=== PATIENT | female | born 1930 ===

== ENCOUNTER 2017-06-11 10:35 | Observation (INO) | payer MEDICARE, OTHER ==
[2017-06-11 10:38] VITALS: BMI 21.9
[2017-06-11] MEDS ORDERED: Sodium Chloride 0.9% 1,000 ML IV STA (11:18)
--- NOTE | 2017-06-11 11:24 | ED PDOC ---
HPI: Altered Mental Status Time Seen by Provider: 06/11/17 10:45 Chief Complaint (Provider): Altered Mental Status History Per: Patient Additional Complaint(s): Kim Corral is a 87 year old female presenting to the ED accompanied by her son and her cousin's [id number] for an evaluation of an altered mental status episode occurring at 9:15 AM prior to arrival. The patient is visiting [place] from [place] due to her cousins hospitalization. The patients cousins [id number] states the patient was fine this morning, then at breakfast she was incoherent, repeating the same question over again, fell to the ground, then was unable to ambulate on her own. The patient's cousin's [id number] took the patient home then called the ambulance to take the patient to the ED. The patient took daytime Nyquil this morning for a cough and cold. She denies fever, double vision, nausea, chest pain, or any recent similar symptoms in the past. The patient's speech and vision are normal upon arrival to the ED. PMD: None Provided NIHSS Stroke Scale - Date/Time Evaluation Performed When Was NIHSS Performed: Baseline - How Severe is the Stroke Level of Consciousness: 0=Alert LOC to Questions: 0=Both comments correct LOC to commands: 0=Obeys both correctly Best Gaze: 0=Normal Visual: 0=No visual loss Facial: 0=Normal Motor Arm - Left: 0=No drift Motor Arm - Right: 0=No drift Motor Leg - Left: 0=No drift Motor Leg - Right: 0=No drift Limb Ataxia: 0=Absent Sensory: 0=Normal Best Language: 0=No aphasia Dysarthia: 0=Normal articulation Extinction & Inattention (Neglect): 0=Normal, no object Score: 0 Past Medical History Vital Signs: Last Vital Signs Temp 97.3 F L 06/11/17 10:36 Pulse 76 06/11/17 10:36 Resp 18 06/11/17 10:36 BP 122/62 06/11/17 10:36 Pulse Ox 99 06/11/17 10:36 - Medical History PMH: HTN - Family History Family History: States: Unknown Family Hx - Social History Current smoker - smoking cessation education provided: No - Allergies Allergies/Adverse Reactions: Allergies Allergy/AdvReac Type Severity Reaction Status Date / Time No Known Allergies Allergy Verified 06/11/17 11:16 Review of Systems ROS Statement: Except As Marked, All Systems Reviewed And Found Negative Constitutional: Negative for: Fever Eyes: Negative for: Vision Change Cardiovascular: Negative for: Chest Pain Gastrointestinal: Negative for: Nausea Neurological: Positive for: Incoordination, Confusion, Altered Mental Status Physical Exam - Reviewed Nursing Documentation Reviewed: Yes Vital Signs Reviewed: Yes - Physical Exam Appears: Positive for: Well, Non-toxic, No Acute Distress Head Exam: Positive for: ATRAUMATIC, NORMAL INSPECTION, NORMOCEPHALIC Skin: Positive for: Normal Color, Warm, DRY Eye Exam: Positive for: EOMI, Normal appearance, PERRL ENT: Positive for: Normal ENT Inspection Neck: Positive for: Normal, Painless ROM Cardiovascular/Chest: Positive for: Chest Non Tender, Murmur (Holosystolic murmur in apex radiating to aortic area rating 3/6) Respiratory: Positive for: Normal Breath Sounds. Negative for: Respiratory Distress Gastrointestinal/Abdominal: Positive for: Normal Exam, Bowel Sounds, Soft Back: Positive for: Normal Inspection Extremity: Positive for: Normal ROM Neurologic/Psych: Positive for: Alert, Oriented - Laboratory Results Result Diagrams: 06/11/17 11:45 06/11/17 11:45 - ECG O2 Sat by Pulse Oximetry: 99 (RA) Pulse Ox Interpretation: Normal Medical Decision Making Medical Decision Makin:45 Impression: Altered mental status Plan: * ED EKG * Alcohol Serum * Comp metabolic panel * Drug screen, urine * Troponin I * CBC (With Differential) * NS 0.9% 250 mls/hr IV * CT Head W/O Contrast * Chest Two Views (PA/LAT) [RAD] * Glucose, Blood, POC * Reevaluation Chest X-ray FINDINGS: LINES AND TUBES: None. LUNG AND PLEURA: There is mild pulmonary venous congestion. No focal consolidation. HEART AND MEDIASTINUM: The heart is not enlarged. Atherosclerotic aortic arch calcifications are present. The hilar and mediastinal contours are within normal limits. SKELETAL STRUCTURES: There is an S-shaped scoliosis in the thoracolumbar spine. VISUALIZED UPPER ABDOMEN: Normal. OTHER FINDINGS: Surgical clips in the right upper quadrant are related to prior cholecystectomy.. IMPRESSION: No active pulmonary disease. Head CT FINDINGS: HEMORRHAGE: No intracranial hemorrhage. BRAIN: There are mild chronic microangiopathic changes. There is no mass, mass effect or abnormal extra-axial fluid collection. VENTRICLES: There is mild age-related global parenchymal volume loss and proportionate enlargement of the ventricles and cortical sulci. CALVARIUM: The skull base and calvarium are normal. PARANASAL SINUSES: Predominantly clear. MASTOID AIR CELLS: Predominantly clear. OTHER FINDINGS: None. IMPRESSION: No acute intracranial abnormality. Mild chronic microangiopathic changes and mild age-related global parenchymal volume loss. Scribe Attestation: Documented by Anisha Smith, acting as a scribe for Paulina Prajapati MD. Provider Scribe Attestation: All medical record entries made by the Scribe were at my direction and personally dictated by me. I have reviewed the chart and agree that the record accurately reflects my personal performance of the history, physical exam, medical decision making, and the department course for this patient. I have also personally directed, reviewed, and agree with the discharge instructions and disposition. case d/w Dr. Stafford for observation admission. Neuro consult. Disposition - Clinical Impression Clinical Impression: Altered mental status - Patient ED Disposition Is Patient to be Admitted: Yes Doctor Will See Patient In The: Hospital - Disposition Disposition: Transfer of Care Disposition Time: 13:40 Condition: GUARDED - Pt Status Changed To: Hospital Disposition Of: Observation - POA Present On Arrival: None
--- NOTE | 2017-06-11 11:47 | RAD ---
HISTORY: COMPARISON: No prior. TECHNIQUE: Chest PA and lateral FINDINGS: LINES AND TUBES: None. LUNG AND PLEURA: There is mild pulmonary venous congestion. No focal consolidation. HEART AND MEDIASTINUM: The heart is not enlarged. Atherosclerotic aortic arch calcifications are present. The hilar and mediastinal contours are within normal limits. SKELETAL STRUCTURES: There is an S-shaped scoliosis in the thoracolumbar spine. VISUALIZED UPPER ABDOMEN: Normal. OTHER FINDINGS: Surgical clips in the right upper quadrant are related to prior cholecystectomy.. IMPRESSION: No active pulmonary disease.
[2017-06-11 11:53] LABS: BASO # 0.1 K/uL (0.0-0.2); BASO % 1.1 % (0.0-2.0); EOS # 0.2 K/uL (0.0-0.7); EOS % 2.2 % (0.0-4.0); HEMATOCRIT 39.6 % (34.0-47.0); LYMPH # 1.7 K/uL (1.0-4.3); LYMPH % 24.1 % (20.0-40.0); MEAN CELL VOLUME 91.7 fl (81.0-99.0); MEAN CORPUSCULAR HEMOGLOBIN 30.4 pg (27.0-31.0); MEAN CORPUSCULAR HGB CONC 33.2 g/dL (33.0-37.0); MEAN PLATELET VOLUME 9.7 fl (7.2-11.7); MONO # 0.6 K/uL (0.0-0.8); MONO % 7.7 % (0.0-10.0); NEUT # 4.7 K/uL (1.8-7.0); NRBC % 0.2 % (0.0-0.0); PLATELET COUNT 192 K/uL (130-400); RED CELL DISTRIBUTION WIDTH 14.3 % (11.5-14.5); WHITE BLOOD COUNT 7.2 K/uL (4.8-10.8)
[2017-06-11 12:12] LABS: NEUT % 64.9 % (50.0-75.0)
[2017-06-11 12:14] LABS: ALB/GLOB RATIO 1.5 (1.0-2.1); ALCOHOL SERUM < 10 mg/dl (0-10); ALKALINE PHOSPHATASE 94 U/L (38-126); ALT/SGPT 33 U/L (9-52); AST/SGOT 32 U/L (14-36); BILIRUBIN,TOTAL 0.4 mg/dl (0.2-1.3); BLOOD UREA NITROGEN 20 mg/dl (7-17); CALCIUM 9.8 mg/dL (8.4-10.2); CARBON DIOXIDE 24 mmol/L (22-30); CHLORIDE 107 mmol/L (98-107); GFR AFRICAN-AMERICAN > 60; GLUCOSE,RANDOM 146 mg/dL (65-105); SODIUM 141 mmol/l (132-148); TOTAL PROTEIN 7.4 G/DL (6.3-8.2)
--- NOTE | 2017-06-11 12:18 | CT ---
PROCEDURE: CT HEAD WITHOUT CONTRAST. HISTORY: Altered mental status COMPARISON: None available. TECHNIQUE: Axial computed tomography images were obtained through the head/brain without intravenous contrast. Radiation dose: Total exam DLP = 789.31 mGy-cm. This CT exam was performed using one or more of the following dose reduction techniques: Automated exposure control, adjustment of the mA and/or kV according to patient size, and/or use of iterative reconstruction technique. FINDINGS: HEMORRHAGE: No intracranial hemorrhage. BRAIN: There are mild chronic microangiopathic changes. There is no mass, mass effect or abnormal extra-axial fluid collection. VENTRICLES: There is mild age-related global parenchymal volume loss and proportionate enlargement of the ventricles and cortical sulci. CALVARIUM: The skull base and calvarium are normal. PARANASAL SINUSES: Predominantly clear. MASTOID AIR CELLS: Predominantly clear. OTHER FINDINGS: None. IMPRESSION: No acute intracranial abnormality. Mild chronic microangiopathic changes and mild age-related global parenchymal volume loss.
[2017-06-11 12:25] LABS: POTASSIUM 4.5 MMOL/L (3.6-5.0)
[2017-06-11] MEDS ORDERED: Sodium Chloride 0.9% 500 ML IV STA (13:07)
[2017-06-11 13:11] LABS: BASOPHIL 1 % (0-2); EOSINOPHIL 3 % (0-7); NEUTROPHIL 62 % (42-75); TOTAL CELLS COUNTED 100
--- NOTE | 2017-06-11 15:07 | CARD ---
APPROVED REPORT EKG Measurement Heart [id number] DC [id number] [id number] <Conclusion> Normal sinus rhythm Nonspecific T wave abnormality Abnormal ECG
--- NOTE | 2017-06-11 16:45 | CP.PCM.CON ---
History of Present Illness - History of Present Illness History of Present Illness: Mrs. Israel Corral is an 87-year-old woman with a past medical history of hypertension, dyslipidemia, hypothyroidism, previous ID, multiple prior UTIs, who was noted to be confused and repeating herself this morning. She was attempting to eat and was apparently dropping food out of her mouth. She was brought to the ED and had no focal weakness or sensory changes, but was asking repetitive questions. Currently, the patient is asking to go home and does not have any complaints. However, her family states that she still seems confused to them. Review of Systems - Review of Systems All systems: reviewed and no additional remarkable complaints except Past Patient History - Past Social History Smoking Status: Never Smoked - CARDIAC Hx Hypertension: Yes - PSYCHIATRIC Hx Substance Use: No - SURGICAL HISTORY Hx Surgeries: No - ANESTHESIA Hx Anesthesia: No Meds Allergies/Adverse Reactions: Allergies Allergy/AdvReac Type Severity Reaction Status Date / Time No Known Allergies Allergy Verified 06/11/17 11:16 Physical Exam - Constitutional Appears: Well - Head Exam Head Exam: ATRAUMATIC, NORMAL INSPECTION, NORMOCEPHALIC - Eye Exam Eye Exam: EOMI, Normal appearance, PERRL - ENT Exam ENT Exam: Mucous Membranes Moist, Normal Exam - Neck Exam Neck exam: Positive for: Normal Inspection - Respiratory Exam Respiratory Exam: Clear to Auscultation Bilateral, NORMAL BREATHING PATTERN - Cardiovascular Exam Cardiovascular Exam: REGULAR RHYTHM, +S1, +S2 - GI/Abdominal Exam GI & Abdominal Exam: Normal Bowel Sounds, Soft. absent: Tenderness - Rectal Exam Rectal Exam: Deferred - Extremities Exam Extremities exam: Positive for: normal inspection - Back Exam Back exam: NORMAL INSPECTION - Neurological Exam Neurological exam: Abnormal Gait, Alert, CN II-XII Intact, Oriented x3, Reflexes Normal - Expanded Neurological Exam Expanded Patient oriented to: person, place, time Cranial nerves: EOM's Intact: Normal, Facial Sensation: Normal Ataxia: No Cerebellar Function: Finger to Nose: Normal Upper motor neuron: Babinski Sign: Normal Sensory exam: Lower Extremity Light Touch: Normal, Lower Extremity Pin Prick: Normal, Upper Extremity Light Touch: Normal, Upper Extremity Pin Prick: Normal Neuro motor strength exam: Left Upper Extremity: 4, Right Upper Extremity: 4, Left Lower Extremity: 4, Right Lower Extremity: 4 DTR: Achilles Tendon Left: 2+, Achilles Tendon Right: 2+, Bicep Left: 2+, Bicep Right: 2+, Brachioradialis Left: 2+, Brachioradialis Right: 2+, Patellar Left: 2 +, Patellar Right: 2+, Tricep Left: 2+, Tricep Right: 2+ - Psychiatric Exam Psychiatric exam: Normal Mood - Skin Skin Exam: Intact, Normal Color, Warm Results - Vital Signs Recent Vital Signs: Last Vital Signs Temp 97.3 F L 06/11/17 10:36 Pulse 76 06/11/17 10:36 Resp 18 06/11/17 10:36 BP 122/62 06/11/17 10:36 Pulse Ox 99 06/11/17 14:08 - Labs Result Diagrams: 06/11/17 11:45 06/11/17 11:45 - Imaging and Cardiology CT scan - head Status: Image reviewed by me, Report reviewed by me (Subcortical white matter disease and age appropriate atrophy without significant acute findings. ) Assessment & Plan (1) Encephalopathy Assessment and Plan: Most likely toxic-metabolic encephalopathy due to underlying infection, dehydration or other metabolic disorder. We may rule out acute infarct or other intracranial lesion with MRI of the brain. Furthermore, I recommend: 1. Urinalysis with culture 2. Hydration with NS at 100 mL/hr 3. Check B12, folate, TSH, T3/T4 4. PT/OT eval and treat 5. Continue aspirin, antihypertensives and statin 6. DVT Px Thank you. Status: Acute Priority: High
[2017-06-11 16:50] LABS: RBC URINE 2 /hpf (0-3); URINE BACTERIA RARE (<OCC); URINE BILIRUBIN NEGATIVE (NEGATIVE); URINE BLOOD NEGATIVE (NEGATIVE); URINE COLOR STRAW (YELLOW); URINE GLUCOSE (UA) NEG (Normal); URINE KETONE NEGATIVE (NEGATIVE); URINE LEUKOCYTE ESTERASE NEG Leu/uL (Negative); URINE PROTEIN NEGATIVE (NEGATIVE); URINE UROBILINOGEN 0.2-1.0 mg/dL (0.2-1.0); WBC URINE 4 /hpf (0-5)
[2017-06-12 06:35] LABS: HEMATOCRIT 35.6 % (34.0-47.0); MEAN CELL VOLUME 89.2 fl (81.0-99.0); MEAN CORPUSCULAR HEMOGLOBIN 30.5 pg (27.0-31.0); MEAN CORPUSCULAR HGB CONC 34.2 g/dL (33.0-37.0); RED CELL DISTRIBUTION WIDTH 14.1 % (11.5-14.5); WHITE BLOOD COUNT 4.5 K/uL (4.8-10.8)
[2017-06-12 06:46] LABS: ALB/GLOB RATIO 1.4 (1.0-2.1); ALKALINE PHOSPHATASE 75 U/L (38-126); ALT/SGPT 28 U/L (9-52); AST/SGOT 25 U/L (14-36); BILIRUBIN,TOTAL 0.3 mg/dl (0.2-1.3); BLOOD UREA NITROGEN 19 mg/dl (7-17); CALCIUM 8.9 mg/dL (8.4-10.2); CARBON DIOXIDE 24 mmol/L (22-30); CHLORIDE 108 mmol/L (98-107); CHOLESTEROL 154 mg/dL (0-199); GFR AFRICAN-AMERICAN > 60; GLUCOSE,RANDOM 132 mg/dL (65-105); POTASSIUM 4.1 MMOL/L (3.6-5.0); SODIUM 140 mmol/l (132-148); TOTAL PROTEIN 6.3 G/DL (6.3-8.2)
[2017-06-12 06:58] LABS: T4 5.63 ug/dl (5.5-11.0)
--- NOTE | 2017-06-12 10:32 | MRI ---
PROCEDURE: MRI BRAIN WITHOUT CONTRAST HISTORY: confusion and speech difficulty COMPARISON: None. TECHNIQUE: Multiplanar, multisequence MR images of the brain were obtained without intravenous contrast enhancement. FINDINGS: HEMORRHAGE: None DWI: No evidence of an acute or early subacute infarction. BRAIN PARENCHYMA: No mass effect or edema. Severe chronic microvascular disease can be seen in the periventricular white matter. VENTRICLES: Unremarkable. No hydrocephalus. CRANIUM: Unremarkable. ORBITS: Grossly unremarkable. PARANASAL SINUSES/MASTOIDS: Clear VASCULAR SYSTEM: Skull base flow voids intact. OTHER FINDINGS: None. IMPRESSION: Severe chronic microvascular disease. No acute intracranial findings
--- NOTE | 2017-06-12 10:34 | MRI ---
PROCEDURE: Magnetic Resonance Angiography Brain HISTORY: confusion and speech difficulty COMPARISON: None available. TECHNIQUE: 3D time of flight MR angiography of the intracranial arteries was performed. Rotating maximum intensity projection images were generated. FINDINGS: INTERNAL CEREBRAL ARTERIES: Unremarkable. The skull base, petrous, cavernous and supraclinoid segments are bilaterally widely patient. ANTERIOR CEREBRAL ARTERIES: Unremarkable. A1 and A2 segments are widely patent. Smaller distal branches unremarkable, as visualized. MIDDLE CEREBRAL ARTERIES: Unremarkable. M1 and M2 segments are widely patent. Perisylvian branches grossly symmetric. POSTERIOR CIRCULATION: Basilar Artery: Unremarkable. Distal Vertebral Arteries: Unremarkable. Posterior Cerebral Arteries: Unremarkable. Posterior Inferior Cerebellar Arteries: Unremarkable. ANEURYSM/ VASCULAR MALFORMATIONS: None. OTHER FINDINGS: None. IMPRESSION: Unremarkable MR angiography of the brain.
--- NOTE | 2017-06-12 10:38 | MRI ---
PROCEDURE: MR Angiography of the neck without contrast HISTORY: confusion and speech difficulty COMPARISON: None available. TECHNIQUE: 3D [id number] angiography of the neck was performed. Rotating maximum intensity projection images of the cervical carotid and vertebral arteries were generated. The origins of the common carotid arteries were not visualized, which is a limitation inherent to the non-contrast time of flight technique. FINDINGS: RIGHT CAROTID ARTERIES: Common Carotid Artery: Normal. Carotid Bifurcation: Normal. Internal Carotid Artery:Normal. External Carotid Artery (proximal branches): Normal. LEFT CAROTID ARTERIES: Common Carotid Artery: Normal. Carotid Bifurcation: Normal. Internal Carotid Artery:Normal. External Carotid Artery (proximal branches): Normal. VERTEBRAL ARTERIES: Right Vertebral Artery: Normal. Left Vertebral Artery: Normal. OTHER FINDINGS: None. IMPRESSION: Normal MR Angiography of the neck.
[2017-06-12 12:31] VITALS: O2SAT 98
[2017-06-12] MEDS ORDERED: Aspirin 325 mg EC Tablets PO SCH (13:00)
[2017-06-12] MEDS ORDERED: Calcium-Vit D 500 mg-200 Units Tab UD PO SCH (13:00)
[2017-06-12] MEDS ORDERED: Sodium Chloride 0.9% 1,000 ML IV SCH (13:00)
--- NOTE | 2017-06-12 16:02 | CP.PCM.HP ---
History of Present Illness - History of Present Illness History of Present Illness: CC: AMS. 87 y/o F brought to ER [facility], [place] by EMS and accompany by family for evaluation of AMS associated to dizziness and fall at home on AM DOA with no relief of symptoms. As per family, she get dizzied after breakfast, fell and start talking with non sense. Worsening symptoms: After fall unable to ambulate on her own, Talking incoherent, confusion. As per cousin's sister in law, Pt lives in [place] and came to [facility] to see a family member that is hospitalized. Pt denied: Pain, fever, chills, n/v/d, abdominal pain, CP, palpitation, SOB, cough, urinary symptoms, sick contact. PMHx; HTN, AR, High-Cholesterol, Hypothyroidism, Chronic back pain, Hx UTI. Pt with Rods and screws lower leg. EKG shows: Normal sinus rhythm. CXR: No active pulmonary disease. Head MRA: Unremarkable. Brain MRI: Severe chronic microvascular disease. Head CT: No acute intracranial abnormalities. Neck MRA: Normal. Present on Admission - Present on Admission Any Indicators Present on Admission: No Review of Systems - Constitutional Constitutional: As Per HPI - EENT Eyes: Requires Corrective Lenses Ears: Other (negative) Nose/Mouth/Throat: Other (negative) - Cardiovascular Cardiovascular: Other (negative) - Respiratory Respiratory: Other (negative) - Gastrointestinal Gastrointestinal: Other (negative) - Genitourinary Genitourinary: Other (negative) - Musculoskeletal Musculoskeletal: Other (negative) - Integumentary Integumentary: Other (negative) - Neurological Neurological: Behavioral Changes, Confusion - Psychiatric Psychiatric: Behavioral Changes, Confusion - Endocrine Endocrine: Other (negative) - Hematologic/Lymphatic Hematologic: Other (negative) Past Patient History - Past Medical History & Family History Past Medical History?: Yes Pertinent Family History: Unknown - Past Social History Smoking Status: Never Smoked Alcohol: None Drugs: Denies Home Situation {Lives}: Alone - CARDIAC Hx Cardiac Disorders: Yes Hx Hypercholesterolemia: Yes Hx Hypertension: Yes - PULMONARY Hx Respiratory Disorders: No - NEUROLOGICAL Hx Alzheimer's Disease: No - HEENT Hx HEENT Problems: No - RENAL Hx Chronic Kidney Disease: No - ENDOCRINE/METABOLIC Hx Endocrine Disorders: Yes Hx Hypothyroidism: Yes - HEMATOLOGICAL/ONCOLOGICAL Hx Blood Disorders: No - INTEGUMENTARY Hx Dermatological Problems: No - MUSCULOSKELETAL/RHEUMATOLOGICAL Hx Musculoskeletal Disorders: Yes Hx Back Pain: Yes Hx Falls: Yes - GASTROINTESTINAL Hx Gastrointestinal Disorders: No - GENITOURINARY/GYNECOLOGICAL Hx Genitourinary Disorders: No - PSYCHIATRIC Hx Psychophysiologic Disorder: No Hx Substance Use: No - SURGICAL HISTORY Hx Surgeries: Yes Other/Comment: Rods and screws lower bag - ANESTHESIA Hx Anesthesia: Yes Hx Anesthesia Reactions: No Meds Home Medications: Home Medication List Medication Instructions Recorded Confirmed Type Levothyroxine [Synthroid] 75 mcg PO DAILY #30 tab 06/12/17 Rx Allergies/Adverse Reactions: Allergies Allergy/AdvReac Type Severity Reaction Status Date / Time No Known Allergies Allergy Verified 06/11/17 11:16 Physical Exam - Constitutional Appears: No Acute Distress - Head Exam Head Exam: NORMAL INSPECTION - Eye Exam Eye Exam: PERRL - ENT Exam ENT Exam: Normal Oropharynx - Neck Exam Neck exam: Positive for: Normal Inspection - Respiratory Exam Respiratory Exam: NORMAL BREATHING PATTERN - Cardiovascular Exam Cardiovascular Exam: REGULAR RHYTHM - GI/Abdominal Exam GI & Abdominal Exam: Normal Bowel Sounds, Soft - Extremities Exam Extremities exam: Positive for: normal inspection - Back Exam Back exam: NORMAL INSPECTION - Neurological Exam Additional comments: Awake, Ox2, confused, follows commands. Results - Vital Signs Recent Vital Signs: Last Vital Signs Temp 98.2 F 06/12/17 12:31 Pulse 69 06/12/17 12:31 Resp 18 06/12/17 12:31 BP 155/65 H 06/12/17 12:31 Pulse Ox 98 06/12/17 12:31 reviewed Julián - Labs Result Diagrams: 06/12/17 05:00 06/12/17 05:00 Labs: Laboratory Results - last 24 hr 06/11/17 06/11/17 06/12/17 15:50 20:00 03:00 WBC RBC Hgb Hct MCV MCH MCHC RDW Plt Count Sodium Potassium Chloride Carbon Dioxide Anion Gap BUN Creatinine Est GFR ( Amer) Est GFR (Non-Af Amer) Random Glucose Calcium Total Bilirubin AST ALT Alkaline Phosphatase Troponin I < 0.0120 < 0.0120 Total Protein Albumin Globulin Albumin/Globulin Ratio Triglycerides Cholesterol LDL Cholesterol Direct HDL Cholesterol Vitamin B12 25-OH Vitamin D Total Thyroxine (T4) 5.50 Total T3 0.886 L TSH 3rd Generation Urine Color Straw Urine Clarity Clear Urine pH 7.0 Ur Specific [place] 1.008 Urine Protein Negative Urine Glucose (UA) Neg Urine Ketones Negative Urine Blood Negative Urine Nitrate Negative Urine Bilirubin Negative Urine Urobilinogen 0.2-1.0 Ur Leukocyte Esterase Neg Urine RBC (Auto) 2 Urine Microscopic WBC 4 Ur Squamous Epith Cells < 1 Urine Bacteria Rare 06/12/17 06/12/17 06/12/17 05:00 05:00 05:00 WBC 4.5 L RBC 3.99 Hgb 12.2 Hct 35.6 MCV 89.2 D MCH 30.5 MCHC 34.2 RDW 14.1 Plt Count 157 Sodium 140 Potassium 4.1 Chloride 108 H Carbon Dioxide 24 Anion Gap 12 BUN 19 H Creatinine 0.6 L Est GFR ( Amer) > 60 Est GFR (Non-Af Amer) > 60 Random Glucose 132 H Calcium 8.9 Total Bilirubin 0.3 AST 25 ALT 28 Alkaline Phosphatase 75 Troponin I Total Protein 6.3 Albumin 3.7 Globulin 2.6 Albumin/Globulin Ratio 1.4 Triglycerides 196 H Cholesterol 154 LDL Cholesterol Direct 83 HDL Cholesterol 42 Vitamin B12 431 25-OH Vitamin D Total 30.3 Thyroxine (T4) 5.63 Total T3 TSH 3rd Generation 12.40 H Urine Color Urine Clarity Urine pH Ur Specific [place] Urine Protein Urine Glucose (UA) Urine Ketones Urine Blood Urine Nitrate Urine Bilirubin Urine Urobilinogen Ur Leukocyte Esterase Urine RBC (Auto) Urine Microscopic WBC Ur Squamous Epith Cells Urine Bacteria reviewed j.P. - EKG Data EKG comments: reviewed J.P. - Imaging and Cardiology Chest x-ray Status: Report reviewed by me (J.P.) CT scan - head Status: Report reviewed by me (J.P.) MRI - head Status: Report reviewed by me (J.P.) Additional comment: Head MRA and Neck MRA - reviewed J.P. Assessment & Plan (1) Altered mental status Status: Acute Priority: High (2) Encephalopathy Status: Acute Priority: High - Assessment and Plan (Free Text) Plan: Ecotrin, Lipitor and rest of Tx, Neuro consult appreciated. - Date & Time Date: 06/12/17 Time: 10:00
[2017-06-12 16:49] VITALS: BP 141/78; PULSE 84; RESP 16; TEMP 97.9
== END 2017-06-12 17:46 | disposition home or self-care (01) ==
LOC: H.ER 10:35 → H.ERHOLD 14:08 → MERGE 14:08 → H.TEL 16:41
PROVIDERS: ADMIT Internal Medicine Pulmonary Disease; ATTEND Internal Medicine Pulmonary Disease
DX: G92 Toxic encephalopathy (principal); E86.0 Dehydration; G89.29 Other chronic pain; I10 Essential (primary) hypertension; E03.9 Hypothyroidism, unspecified; E78.5 Hyperlipidemia, unspecified; I25.2 Old myocardial infarction; E78.00 Pure hypercholesterolemia, unspecified; Z87.440 Personal history of urinary (tract) infections
CPT/HCPCS: 36415; 70450; 70544; 70547; 70551; 71020; 80053; 80061; 81003; 82306; 82607; 82948; 84436; 84443; 84480; 84484; 85025; 85027; 93005; 97161; 97165; 99285; G0378; G0480; G8978; G8979; G8980; G8987; G8988; G8989; J7040